=== PATIENT | male | born 1975 | race Caucasian/White ===

== ENCOUNTER 2016-12-19 11:19 | Inpatient (IN) | payer MEDICAID ==
[~2016-12-19] VITALS: Ht 188 cm; Wt 111.1 kg
[2016-12-19 11:23] VITALS: BP 104/62
--- NOTE | 2016-12-19 12:09 | NUR ---
Pt placed in bed 8 by EMS.
--- NOTE | 2016-12-19 12:15 | NUR ---
X-Ray at bedside.
[2016-12-19 12:19] LABS: BASOPHILS # (AUTO) 0.1 K/uL (0.00-0.22); BASOPHILS % (AUTO) 1.8 % (0.0-2.0); EOSINOPHILS % (AUTO) 0.6 % (0.0-4.0); HEMATOCRIT 32.5 % (36-52); LYMPHOCYTES # (AUTO) 0.7 K/uL (2.0-11.5); LYMPHOCYTES % (AUTO) 13.4 % (20.5-51.1); MEAN CORPUSCULAR HEMOGLOBIN 31 pg (27-31); MEAN CORPUSCULAR HGB CONC 34 g/dL (33-37); MEAN CORPUSCULAR VOLUME 93 fL (80-94); MONOCYTES # (AUTO) 0.8 K/uL (0.8-1.0); MONOCYTES % (AUTO) 15.5 % (1.7-9.3); NEUTROPHILS # (AUTO) 3.6 K/uL (1.8-7.7); NEUTROPHILS % (AUTO) 68.7 % (42.2-75.2); PLATELET COUNT (AUTO) 84 K/uL (140-450); RED BLOOD CELL COUNT(AUTO) 3.51 MIL/uL (4.20-6.10); RED CELL DISTRIBUTION WIDTH 14.5 % (11.6-13.7); WHITE BLOOD COUNT (AUTO) 5.2 K/uL (4.8-10.8)
--- NOTE | 2016-12-19 12:22 | NUR ---
41/F c/o chest pain that started this morning. Per report from [facility] shared services manager, patient has hx of alcohol abuse and was picked up from his ex-'s home with c/o chest pain. Patient has attempted to stop drinking in the past and this last try was 10 days. Pt states he had a beer this am. Pt c/o 7/10 chest pain, sharp, non radiating, constant. AOX4, clear speech. Pt arrived with an IV 18 gauge to left AC. Patient, no signs of infiltration. Pt placed in a gown, patented hogshead assembler, pulse oximetry and blood pressure monitoring. Sinus Tachycardia noted HR 117. Pt received nitro and ASA in the field from shared services manager with no relief.
[2016-12-19] MEDS ORDERED: ONDANSETRON 4 MG/2 ML VIAL IVP ONE (12:35)
[2016-12-19] MEDS ORDERED: NACL 0.9% 1,000 ML IV ONE (12:35)
[2016-12-19 12:37] LABS: ANION GAP 16.3 (8-16); CALCIUM 7.5 mg/dL (8.5-10.1); CREATININE 0.8 mg/dL (0.7-1.3); INR 1.3 (0.8-1.2); PARTIAL THROMBOPLASTIN TIME 30.7 secs (22-35.6); PROTHROMBIN TIME 12.7 secs (10.8-13.4); TOTAL BILIRUBIN 8.3 mg/dL (0.0-1.0); TOTAL PROTEIN, SERUM 6.1 g/dL (6.4-8.2)
[2016-12-19 12:42] LABS: POTASSIUM 2.3 mmol/L (3.5-5.1)
[2016-12-19 13:10] LABS: APPEARANCE,URINE HAZY (CLEAR); BILIRUBIN,URINE 3+ (NEGATIVE); BLOOD, URINE TRACE-L (NEGATIVE); LEUKOCYTE ESTERASE ,URINE NEGATIVE (NEGATIVE); NITRITE, URINE NEGATIVE (NEGATIVE); PROTEIN,URINE 1+ (NEGATIVE); UGLUCOSE NEGATIVE (NEGATIVE); UROBILINOGEN,URINE 0.2 EU/dL (0.2 - 1)
[2016-12-19 13:13] LABS: AMPHETAMINE, URINE NEG. ng/ml (NEG <=1000); BARBITURATE, URINE NEG. ng/ml (NEG <=200); BENZODIAZEPINE, URINE NEG. ng/mL (NEG <=200); CANNABINOID, URINE NEG. ng/mL (NEG <=50); COCAINE, URINE NEG. ng/mL (NEG <=300); OPIATE, URINE NEG. ng/mL (NEG <=2000); PHENCYCLIDINE SCREEN,URINE NEG. ng/mL (NEG <=25)
[2016-12-19] MEDS ORDERED: LORazepam 2 MG/ML VIAL ONE (13:14)
[2016-12-19 13:23] LABS: COLOR,URINE AMBER (YELLOW); ICTOTEST POSITIVE (NEGATIVE)
--- NOTE | 2016-12-19 13:23 | NUR ---
Patient appears to be resting comfortably in bed. VSS. Water provided. Pt placed in position of comfort.
[2016-12-19 13:24] LABS: BACTERIA,URINE None Seen /HPF (None Seen); RBC,URINE NONE SEEN /HPF (0-5); SQUAMOUS EPITHELIAL CELL,UR None Seen /LPF (0-3 (FEW)); WBC,URINE 20-60 /HPF (0-5)
--- NOTE | 2016-12-19 13:48 | NUR ---
Patient appears to be resting comfortably in bed. Lying on left side. IV fluids infusing. VSS.
[2016-12-19] MEDS ORDERED: LORazepam 2 MG/ML VIAL IVP ONE ×2 (14:10→15:25)
[2016-12-19] MEDS ORDERED: NACL 0.9% IV ONE (14:45)
[2016-12-19] MEDS ORDERED: MULTIVITAMIN IV ONE (14:45)
[2016-12-19] MEDS ORDERED: THIAMINE IV ONE (14:45)
--- NOTE | 2016-12-19 14:50 | NUR ---
Patient being evaluated by Dr. Alexander at bedside.
[2016-12-19] MEDS ORDERED: POTASSIUM CHL 40 MEQ/ D5-1/2NS 1,000 ML IV ONE (15:40)
--- NOTE | 2016-12-19 15:41 | NUR ---
Patient appears to be resting comfortably in bed. VSS.
[2016-12-19] MEDS ORDERED: ONDANSETRON 4 MG/2 ML VIAL IVP PRN (15:45)
[2016-12-19] MEDS ORDERED: HYDROcodone/APAP 7.5/325 MG 1 TAB PO PRN (15:45)
[2016-12-19] MEDS ORDERED: IBUPROFEN 600 MG TAB PO ONE (16:00)
--- NOTE | 2016-12-19 16:00 | NUR ---
Pt noted with a temp of 101.[address] Alexander made aware. Verbal order for Ibuprofen 600mg PO once received.
[2016-12-19] MEDS ORDERED: ACETAMINOPHEN EXTRA STRENGTH 500 MG TAB ONE (16:01)
--- NOTE | 2016-12-19 16:02 | NUR ---
Pt ambulated to restroom with steady gait.
[2016-12-19] MEDS ORDERED: IBUPROFEN 600 MG TAB ONE (16:04)
[2016-12-19] MEDS ORDERED: NITROGLYCERIN 0.4 MG TAB SL PRN (16:10)
[2016-12-19] MEDS ORDERED: POTASSIUM CHLORIDE 10 MEQ TABER PO SCH (16:15)
--- NOTE | 2016-12-19 16:20 | NUR ---
Patient will be admitted to care of Dr. Islas. Admited to TELE. Will go to room 119-B. Belongings list completed. Report to Amol ROLLE.
[2016-12-19] MEDS ORDERED: MAG SULF 2000 MG/WATER PREMIX 100 ML IV ONE (16:25)
[2016-12-19 16:43] LABS: LACTIC ACID 9.1 mmol/L (0.4-2.0)
[2016-12-19 16:45] VITALS: BP 114/68
--- NOTE | 2016-12-19 16:45 | NUR ---
PATIENT ARRIVED TO THE UNIT. PATIENT AWAKE, ALERT AND ORIENTED. NO C/O PAIN. NO SOB. PATIENT ON ROOM AIR. TEMP 101.3. COOLING MEASURES PUT IN PLACE. PATIENT MEDICATED IN ER. WILL CONTINUE TO MONITOR. DISTENDED ABD NOTED. IV LINE TO THE LEFT AC INTACT WITH IVF INFUSING WELL. PATIENT PLACED ON TELE MONITORING. BED LOWERED WITH CALL LIGHT WITHIN REACH. WILL CONTINUE TO MONITOR
[2016-12-19 16:46] LABS: FREE T4 (FREE THYROXINE) 1.16 ng/dL (0.76-1.46); PHOSPHORUS 2.1 mg/dL (2.5-4.9); THYROID STIMULATING HORMONE 1.22 uIU/mL (0.34-3.74)
[2016-12-19] MEDS ORDERED: KETOROLAC 30 MG/ML VIAL IVP SCH (17:40)
--- NOTE | 2016-12-19 18:45 | NUR ---
TEMPERATURE CHECKED. TEMP 99.3. NO S/S OF DISTRESS NOTED
--- NOTE | 2016-12-19 19:38 | NUR ---
PATIENT REPORT GIVEN AT BEDSIDE. PATIENT ENDORSED IN STABLE CONDITION
--- NOTE | 2016-12-19 19:39 | NUR ---
RECEIVED PT FROM ANDERS ROLLE PT IS AAOX4 AMBULATORY IV ON LEFT FA IS OUT , IV ON RT FA INFUSING WELL ON TELEMETRY ST, REPOSITIONED INITIAL ASSESSMENT DONE.
[2016-12-19 20:00] VITALS: BP 112/66
[2016-12-19] MEDS: NACL 0.9% 1,000 ML IV SCH (20:00)
[2016-12-19 20:36] LABS: CARBON DIOXIDE 32.3 mmol/L (21-32); CREATININE 0.7 mg/dL (0.7-1.3)
[2016-12-19 20:39] LABS: POTASSIUM 2.3 mmol/L (3.5-5.1)
[2016-12-19] MEDS ORDERED: KCL 20 MEQ/WATER INJ PREMIX 200 ML IV ONE (20:50)
[2016-12-19] MEDS ORDERED: POTASSIUM CHLORIDE 10 MEQ TABER PO ONE (20:50)
--- NOTE | 2016-12-19 21:00 | NUR ---
PT RECEIVING # 1 bag IVPB POTASSIUM for k=2.3, on close monitoring not distress note
[2016-12-19] MEDS: ATORVASTATIN 20 MG TAB PO SCH (21:27)
[2016-12-19] MEDS: DOCUSATE SODIUM 100 MG GELCAP PO SCH (21:28)
[2016-12-19] MEDS: METOPROLOL 25 MG TAB PO SCH (21:29)
[2016-12-19] MEDS: LORazepam 2 MG/ML VIAL IVP PRN (22:40)
--- NOTE | 2016-12-19 22:40 | NUR ---
PT WITH TREMOR FOR ALCOHOLISM ATIVA IV GIVEN ORDER
--- NOTE | 2016-12-19 23:40 | NUR ---
PT RECEIVING #2 BAG K 20 MEQ IVPB FOR K-2.3
--- NOTE | 2016-12-19 23:53 | NUR ---
PT STILL ANXIOUS AGITATED , REPOSITIONED
[2016-12-19] MEDS: LORazepam 1 MG TAB PO SCH (23:58)
[2016-12-20] VITALS: BP 121/73
[2016-12-20] MEDS: NACL 0.9% 1,000 ML IV SCH ×3 (00:05→17:08)
--- NOTE | 2016-12-20 00:48 | NUR ---
PT SLEEPING WELL NOT DISTRESS NOTED ON TELEMETRY ST
--- NOTE | 2016-12-20 03:31 | NUR ---
PT SLEEPING NOT DISTRESS NOTED IV ON RT FA INFUSING WELL ON TELEMETRY ST,
[2016-12-20 04:00] VITALS: BP 98/51
[2016-12-20 04:09] LABS: BASOPHILS % (AUTO) 0.8 % (0.0-2.0); HEMATOCRIT 28.6 % (36-52); HEMOGLOBIN 9.5 g/dL (12.0-18.0); LYMPHOCYTES # (AUTO) 0.8 K/uL (2.0-11.5); LYMPHOCYTES % (AUTO) 15.5 % (20.5-51.1); MEAN CORPUSCULAR HEMOGLOBIN 32 pg (27-31); MEAN CORPUSCULAR HGB CONC 33 g/dL (33-37); MEAN CORPUSCULAR VOLUME 95 fL (80-94); MONOCYTES # (AUTO) 0.7 K/uL (0.8-1.0); MONOCYTES % (AUTO) 14.8 % (1.7-9.3); NEUTROPHILS # (AUTO) 3.5 K/uL (1.8-7.7); NEUTROPHILS % (AUTO) 67.9 % (42.2-75.2); PLATELET COUNT (AUTO) 80 K/uL (140-450); RED BLOOD CELL COUNT(AUTO) 3.03 MIL/uL (4.20-6.10); RED CELL DISTRIBUTION WIDTH 14.5 % (11.6-13.7)
[2016-12-20] MEDS: LORazepam 1 MG TAB PO SCH ×3 (04:54→21:51)
--- NOTE | 2016-12-20 05:01 | NUR ---
SPONGE BATH GIVEN , LINEN CHANGED ON TELEMETRY ST IV ON RT FA INFUSIG WELL NOT DISTRESS NOTED AT THIS TIME
--- NOTE | 2016-12-20 06:29 | NUR ---
PT RESTING ON BED NOT DISTRESS NOTED AT THIS TIME IV ON RT FA INFUSING WELL ON TELEMETRY ST
[2016-12-20 06:34] LABS: ALBUMIN 1.8 g/dL (3.4-5.0); ANION GAP 10.2 (8-16); CALCIUM 7.2 mg/dL (8.5-10.1); CARBON DIOXIDE 30.7 mmol/L (21-32); CREATININE 0.7 mg/dL (0.7-1.3); TOTAL BILIRUBIN 10.1 mg/dL (0.0-1.0); TOTAL PROTEIN, SERUM 5.3 g/dL (6.4-8.2)
[2016-12-20 06:43] LABS: POTASSIUM 2.9 mmol/L (3.5-5.1)
[2016-12-20 06:44] LABS: MAGNESIUM 2.3 mg/dL (1.8-2.4); PHOSPHORUS 2.7 mg/dL (2.5-4.9)
--- NOTE | 2016-12-20 07:20 | NUR ---
RECEIVED PATIENT REPORT AT BEDSIDE. PATIENT AWAKE, ALERT AND ORIENTED. NO S/S OF DISTRESS NOTED. NO C/O PAIN. PATIENT ON ROOM AIR. IV LINE TO THE RIGHT FOREARM INTACT WITH IVF INFUSING WELL. PATIENT ON TELE MONITORING. BED LOWERED WITH CALL LIGHT WITHIN REACH. WILL CONTINUE TO MONITOR
[2016-12-20 08:00] VITALS: BP 120/72
--- NOTE | 2016-12-20 08:13 | NUR ---
PATIENT HAS BEEN SCREENED AND CATEGORIZED LOW NUTRITION RISK. PATIENT WILL BE SEEN WITHIN 7 DAYS OF ADMISSION. 12/26/[address]
[2016-12-20] MEDS: ASPIRIN 81 MG TAB.CHEW PO SCH (08:40)
[2016-12-20] MEDS: LISINOPRIL 5 MG TAB PO SCH (08:40)
[2016-12-20] MEDS: FOLIC ACID 1 MG TAB PO SCH (08:41)
[2016-12-20] MEDS: THIAMINE 100 MG TAB PO SCH (08:41)
[2016-12-20] MEDS: METOPROLOL 25 MG TAB PO SCH ×2 (08:41→21:52)
[2016-12-20] MEDS: MULTIVITAMIN 1 TAB PO SCH (08:41)
[2016-12-20] MEDS: CALCIUM CARB/VIT-D 500 MG/200 IU 1 TAB PO SCH ×2 (08:41→21:52)
[2016-12-20] MEDS: DOCUSATE SODIUM 100 MG GELCAP PO SCH ×2 (09:00→21:52)
[2016-12-20] MEDS: NICOTINE TRANSD SYS 7 MG/24 HR PATCH TD SCH (09:55)
[2016-12-20] MEDS: LORazepam 2 MG/ML VIAL IVP PRN ×4 (09:58→23:15)
[2016-12-20] MEDS: POTASSIUM CHLORIDE 20% 40 MEQ/15 ML UDC PO SCH ×2 (11:50→17:08)
[2016-12-20 12:00] VITALS: BP 100/61
--- NOTE | 2016-12-20 14:59 | NUR ---
PATIENT SLEEPING IN BED. NO S/S OF DISTRESS NOTED
[2016-12-20 16:00] VITALS: BP 103/57
[2016-12-20] MEDS ORDERED: ZOLPIDEM 5 MG TAB PO PRN (17:50)
--- NOTE | 2016-12-20 19:30 | NUR ---
RECEIVED REPORT FROM AM NURSE. PT AOX3, ABLE TO VERBALIZE NEEDS, CONFUSED AT TIMES. PT DENIES CHEST PAIN, SOB OR S/S OF ACUTE DISTRESS. COMMAND AND CONTROL SPECIALIST IN PLACE. IV ACCESS ASYMPTOMATIC, PATENT AND INTACT. IVF INFUSING WELL. DISCUSSED AND REVIEWED PLAN OF CARE WITH PT. PT VERBALIZED UNDERSTANDING, WILL CONTINUE TO REINFORCE. SAFETY MEASURES ENSURED. CALL LIGHT WITHIN REACH. WILL CONTINUE TO MONITOR.
--- NOTE | 2016-12-20 19:34 | NUR ---
PATIENT REPORT GIVEN AT BEDSIDE. PATIENT ENDORSED IN STABLE CONDITION
[2016-12-20 19:57] LABS: ANION GAP 9.4 (8-16); CALCIUM 7.4 mg/dL (8.5-10.1); CARBON DIOXIDE 28.8 mmol/L (21-32); CREATININE 0.7 mg/dL (0.7-1.3); POTASSIUM 3.2 mmol/L (3.5-5.1)
[2016-12-20 20:00] VITALS: BP 120/80
[2016-12-20] MEDS: ATORVASTATIN 20 MG TAB PO SCH (21:52)
--- NOTE | 2016-12-20 21:53 | NUR ---
ADMINISTERED DUE MEDICATIONS WITH EDUCATION. PT VERBALIZED UNDERSTANDING, TOLERATED MEDS WELL. ALL NEEDS MET. SAFETY MEASURES ENSURED. CALL LIGHT WITHIN REACH. WILL CONTINUE TO MONITOR.
--- NOTE | 2016-12-20 23:15 | NUR ---
NOTIFIED BY SHOE SHANKER THAT PT IS MORE CONFUSED AT THIS TIME. PT WAS ANXIOUS AND RESTLESS, PT GETTING DRESSED, STATING HE NEEDS TO BE HOME AND HIS AUNT IS GOING TO PICK HIM UP. PT REORIENTED, ENCOURAGED PT TO STAY, OFFERED TO GIVE ATIVAN IV TO HELP HIM RELAX, PT AGREED. ADMINISTERED PRN IV ATIVAN ORDERED. PT HELPED BACK TO BED. SAFETY MEASURES ENSURED. CALL LIGHT WITHIN REACH.
[2016-12-21] VITALS: BP 114/59
--- NOTE | 2016-12-21 01:15 | NUR ---
PT RESTING IN BED, CONDITION STABLE. ALL NEEDS MET. SAFETY MEASURES ENSURED. CALL LIGHT WITHIN REACH. WILL CONTINUE TO MONITOR.
[2016-12-21 04:00] VITALS: BP 107/66
[2016-12-21] MEDS: LORazepam 1 MG TAB PO SCH ×2 (04:57→13:10)
--- NOTE | 2016-12-21 05:10 | NUR ---
ADMINISTERED DUE ATIVAN ORDERED. PT TOLERATED MED WELL. ALL NEEDS MET. SAFETY MEASURES ENSURED. CALL LIGHT WITHIN REACH.
[2016-12-21 06:10] LABS: MAGNESIUM 1.8 mg/dL (1.8-2.4); PHOSPHORUS 2.3 mg/dL (2.5-4.9)
[2016-12-21 06:34] LABS: ANION GAP 10.5 (8-16); CALCIUM 7.6 mg/dL (8.5-10.1); CARBON DIOXIDE 27.6 mmol/L (21-32); CREATININE 0.5 mg/dL (0.7-1.3); POTASSIUM 3.1 mmol/L (3.5-5.1)
[2016-12-21 06:44] LABS: BASOPHILS % (AUTO) 0.5 % (0.0-2.0); EOSINOPHILS # (AUTO) 0.1 K/uL (0-0.4); EOSINOPHILS % (AUTO) 2.3 % (0.0-4.0); HEMATOCRIT 27.3 % (36-52); LYMPHOCYTES % (AUTO) 19.3 % (20.5-51.1); MEAN CORPUSCULAR HEMOGLOBIN 32 pg (27-31); MEAN CORPUSCULAR HGB CONC 33 g/dL (33-37); MEAN CORPUSCULAR VOLUME 96 fL (80-94); MONOCYTES # (AUTO) 0.7 K/uL (0.8-1.0); MONOCYTES % (AUTO) 14.2 % (1.7-9.3); NEUTROPHILS # (AUTO) 3.5 K/uL (1.8-7.7); NEUTROPHILS % (AUTO) 63.7 % (42.2-75.2); PLATELET COUNT (AUTO) 102 K/uL (140-450); RED BLOOD CELL COUNT(AUTO) 2.86 MIL/uL (4.20-6.10); WHITE BLOOD COUNT (AUTO) 5.3 K/uL (4.8-10.8)
--- NOTE | 2016-12-21 07:30 | NUR ---
ENDORSED PLAN OF CARE TO AM NURSE. CONDITION STABLE.
--- NOTE | 2016-12-21 07:56 | NUR ---
RECEIVED REPORT FROM NIGHT NURSE, PT HAD NO COMPLAINTS OF PAIN OR DISCOMFORT, A&OX3, ENSURED SAFETY MEASURES IN PLACE, IV PATENT AND INTACT, WILL CONTINUE TO MONITOR.
[2016-12-21 08:00] VITALS: BP 114/58
[2016-12-21] MEDS: NACL 0.9% 1,000 ML IV SCH (08:34)
[2016-12-21] MEDS: LISINOPRIL 5 MG TAB PO SCH (09:00)
[2016-12-21] MEDS ORDERED: SODIUM PHOS / POTASSIUM PHOS 1 PKT PDR PO SCH (09:08)
[2016-12-21] MEDS ORDERED: KCL 20 MEQ/WATER INJ PREMIX 200 ML IV SCH (10:00)
[2016-12-21] MEDS: FOLIC ACID 1 MG TAB PO SCH (10:01)
[2016-12-21] MEDS: NICOTINE TRANSD SYS 7 MG/24 HR PATCH TD SCH ×2 (10:01→10:18)
[2016-12-21] MEDS: METOPROLOL 25 MG TAB PO SCH (10:02)
[2016-12-21] MEDS: DOCUSATE SODIUM 100 MG GELCAP PO SCH (10:02)
[2016-12-21] MEDS: ASPIRIN 81 MG TAB.CHEW PO SCH (10:03)
[2016-12-21] MEDS: MULTIVITAMIN 1 TAB PO SCH (10:03)
[2016-12-21] MEDS: THIAMINE 100 MG TAB PO SCH (10:03)
[2016-12-21] MEDS: CALCIUM CARB/VIT-D 500 MG/200 IU 1 TAB PO SCH (10:03)
--- NOTE | 2016-12-21 10:24 | NUR ---
AM MEDS GIVEN WITH EDUCATION, NO COMPLAINTS, WILL MONITOR
[2016-12-21] MEDS ORDERED: LORA-478 PO (10:46)
[2016-12-21] MEDS ORDERED: LORA-476 PO (10:49)
[2016-12-21 12:00] VITALS: BP 120/80
--- NOTE | 2016-12-21 13:01 | NUR ---
PT PULLED IV LINE FROM MACHINE. NEW IV LINE INFUSING. IV SITE PATENT AND INTACT. WILL CONTINUE TO MONITOR.
[2016-12-21] MEDS ORDERED: OMEP20TC24 PO (13:34)
[2016-12-21] MEDS ORDERED: POTASSIUM CHLORIDE 10 MEQ TABER PO SCH (15:00)
--- NOTE | 2016-12-21 15:24 | NUR ---
PT CLEARED FOR DISCHARGE. DISCHARGE INSTRUCTIONS PROVIDED, PT VERBALIZED UNDERSTANDING. IV TAKEN OUT TIP INTACT. PT DENIES PAIN. NO S/S OF ACUTE DISTRESS. DEBRA EX AT BEDSIDE. PT TAKEN OFF UNIT. PT REMAINS STABLE.
== END 2016-12-21 15:27 | disposition home or self-care (01) | DRG 775 ==
LOC: MED 11:19 → MTU 15:34
PROVIDERS: ADMIT Student in an Organized Health Care Education/Training Program; ATTEND Student in an Organized Health Care Education/Training Program
DX: F10.230 Alcohol dependence with withdrawal, uncomplicated (principal); N17.0 Acute kidney failure with tubular necrosis; G92 Toxic encephalopathy; E43 Unspecified severe protein-calorie malnutrition; E87.8 Other disorders of electrolyte and fluid balance, not elsewhere classified; D69.6 Thrombocytopenia, unspecified; E83.42 Hypomagnesemia; K70.30 Alcoholic cirrhosis of liver without ascites; E87.1 Hypo-osmolality and hyponatremia; Y90.6 Blood alcohol level of 120-199 mg/100 ml; E87.6 Hypokalemia; E83.51 Hypocalcemia; E80.6 Other disorders of bilirubin metabolism; D53.9 Nutritional anemia, unspecified; F17.210 Nicotine dependence, cigarettes, uncomplicated; J45.909 Unspecified asthma, uncomplicated; R74.0 Nonspecific elevation of levels of transaminase and lactic acid dehydrogenase [LDH]; Z53.20 Procedure and treatment not carried out because of patient's decision for unspecified reasons; K21.9 Gastro-esophageal reflux disease without esophagitis; F41.9 Anxiety disorder, unspecified; I25.10 Atherosclerotic heart disease of native coronary artery without angina pectoris; E11.9 Type 2 diabetes mellitus without complications; Z59.0 Homelessness; Z68.31 Body mass index [BMI] 31.0-31.9, adult; Z71.41 Alcohol abuse counseling and surveillance of alcoholic; Z71.6 Tobacco abuse counseling
CPT/HCPCS: 36415; 71010; 76700; 80048; 80053; 80305; 81001; 82150; 83036; 83605; 83690; 83735; 83880; 84100; 84132; 84439; 84443; 84484; 85025; 85610; 85730; 87040; 87081; 87086; 93005; 96361; 96374; 96375; 96376; 99285; A9153; G0482; J0696; J1885; J2060; J2405; J3411; J3475; J3480; J7030; J7060; Q0092